=== PATIENT | male | born 1970 ===

== ENCOUNTER 2018-03-28 10:56 | Emergency (ER) | payer MEDICAID ==
[2018-03-28 11:02] VITALS: BP 110/71; PULSE 73; RESP 18; TEMP 98.8; O2SAT 96
--- NOTE | 2018-03-28 11:36 | C.PDOC ---
History Of Present Illness 47 yo male w/PMHx of chronic lower back pain (under pain management ) presents to the ED for evaluation of diffuse right>left lower back pain which gradually developed over the past 4-5 days. Patient admits he was lifting something heavy at work and believes he pulled a muscle on his right lower backside. Patient reports experiencing similar symptoms in the past. Pt was seen by 3 days ago when received cortison injection, " pain worsen". Otherwise, pt denies fever, chills, denies direct trauma or injury, abdominal pain, N/V, dysuria, hematuria,lower extremity numbness/weakness, saddles anesthesia, incontinence, or any other active complaints. Ambulate to ED for evaluation, not in any apparent distress. Back brace noted . Time Seen by Provider: 03/28/18 11:22 Chief Complaint (Nursing): Back Pain History Per: Patient History/Exam Limitations: no limitations Onset/Duration Of Symptoms: Days, Gradual Current Symptoms Are (Timing): Still Present Quality Of Discomfort: "Pain" Previous Symptoms: Back Pain, Chronic Pain Associated Symptoms: denies: Incontinence, New Weakness, New Numbness Additional History Per: Patient Past Medical History Reviewed: Historical Data, Nursing Documentation, Vital Signs Vital Signs: Last Vital Signs Temp 98.8 F 03/28/18 10:59 Pulse 73 03/28/18 10:59 Resp 18 03/28/18 10:59 BP 110/71 03/28/18 10:59 Pulse Ox 96 03/28/18 11:52 - Medical History PMH: Gastrointestinal Ulcer, HTN Surgical History: No Surg Hx Family History: States: Unknown Family Hx - Social History Hx Alcohol Use: No Hx Substance Use: No Review Of Systems Except As Marked, All Systems Reviewed And Found Negative. Constitutional: Negative for: Fever, Chills ENT: Negative for: Throat Pain Cardiovascular: Negative for: Chest Pain Respiratory: Negative for: Cough Gastrointestinal: Negative for: Vomiting, Abdominal Pain, Diarrhea Genitourinary: Negative for: Dysuria, Incontinence, Hematuria Musculoskeletal: Positive for: Back Pain Skin: Negative for: Rash Neurological: Negative for: Weakness, Numbness Physical Exam - Physical Exam Appears: Well, Non-toxic, No Acute Distress Skin: Normal Color, Warm, Dry, No Rash Head: Normacephalic Eye(s): bilateral: PERRL Nose: No Flaring, No Discharge Oral Mucosa: Moist, No Drooling Throat: No Drooling Neck: No Midline Cervical Tenderness, No Paracervical Tenderness, No Step Off Deformity, Supple Cardiovascular: Rhythm Regular Respiratory: No Decreased Breath Sounds, No Accessory Muscle Use, No Stridor, No Wheezing Gastrointestinal/Abdominal: Soft, No Tenderness, No Distention, No Guarding Back: No CVA Tenderness, No Vertebral Tenderness, Paraspinal Tenderness ( diffuse lumbar paraspinal with moderate muscle spasm), Straight Leg Raising ( Right leg (+) 45 degrees, Left leg (+) 45 degrees) Extremity: Normal ROM, No Pedal Edema, No Deformity, No Swelling Neurological/Psych: Oriented x3, Normal Speech, Normal Motor, Normal Sensation, Normal Reflexes ED Course And Treatment O2 Sat by Pulse Oximetry: 96 (on RA) Pulse Ox Interpretation: Normal Progress Note: Urinalysis ordered and reviewed. Ultram PO, Valium PO, Prednisone PO administered. On re-eval, pt is afebrile, hemodynamicaly stable. non-toxic. Ambulatoyr in ED with stable gait. Neck: Supple, (-) JVD. ENT: no acute findings. Lungs: CTA B/L, BS equal B/L. Abd: benign. back: (-) CVA tenderness. Neurologicaly intact. UA results review, normal. Case discussed with , pt had MRI performed, no significant abnormalities noted. Pt is neurologicaly intact. stable for discharge and poutpt f/u. Pt advised on course of ds. ref. to F/U with PMD, in 2-3 days for re-eval. return to ED if any worsening or new changes. Disposition Counseled Patient/Family Regarding: Studies Performed, Diagnosis, Need For Followup, Rx Given - Disposition Referrals: [facility] [Outside] Disposition: HOME/ ROUTINE Disposition Time: 11:40 Condition: STABLE Additional Instructions: Take medication as prescribed Light duty to lower back Follow up with PMD, Pain management in 2-3 days for re-evaluation. return to ED if any worsening or new changes. 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 - Scribe Statement The provider has reviewed the documentation as recorded by the Scribe (Shasta Schmid) All medical record entries made by the Scribe were at my direction and personally dictated by me. I have reviewed the chart and agree that the record accurately reflects my personal performance of the history, physical exam, medical decision making, and the department course for this patient. I have also personally directed, reviewed, and agree with the discharge instructions and disposition.
[2018-03-28 11:52] LABS: URINE BILIRUBIN NEGATIVE (NEGATIVE); URINE BLOOD NEGATIVE (NEGATIVE); URINE CLARITY Clear (Clear); URINE COLOR Yellow (YELLOW); URINE GLUCOSE (UA) NORMAL (Normal); URINE LEUKOCYTE ESTERASE NEG Leu/uL (Negative); URINE PROTEIN NEGATIVE (NEGATIVE); URINE UROBILINOGEN NORMAL mg/dL (0.2-1.0)
== END 2018-03-28 12:45 | disposition home or self-care (01) ==
LOC: C.ER 10:56
DX: S39.012A Strain of muscle, fascia and tendon of lower back, initial encounter (principal); X50.0XXA Overexertion from strenuous movement or load, initial encounter; Y99.0 Civilian activity done for income or pay; I10 Essential (primary) hypertension
CPT/HCPCS: 81001; 96372; 99283; J1885